=== PATIENT | male | born 1995 | race Caucasian/White ===

== ENCOUNTER 2021-09-21 17:35 | Emergency (ER) | payer OTHER ==
[~2021-09-21] VITALS: Ht 170.7 cm; Wt 69.5 kg
[2021-09-21 17:41] VITALS: BP 130/76
[2021-09-21] MEDS ORDERED: LORazepam 1 MG TAB PO ONE (18:15)
[2021-09-21 19:50] LABS: ANION GAP 16.2 (8-16); CARBON DIOXIDE 26.5 mmol/L (21-32); CREATININE 0.9 mg/dL (0.6-1.3); POTASSIUM 3.7 mmol/L (3.5-5.1)
[2021-09-21 19:51] LABS: ALBUMIN 4.8 g/dL (3.4-5.0); TOTAL BILIRUBIN 0.9 mg/dL (0.0-1.0)
[2021-09-21] MEDS ORDERED: HYDR25CA1 PO (19:55)
[2021-09-21 20:11] VITALS: BP 122/76
== END 2021-09-21 20:11 | disposition home or self-care (01) ==
LOC: MED 17:35
DX: F41.0 Panic disorder [episodic paroxysmal anxiety] (principal); R20.2 Paresthesia of skin; I10 Essential (primary) hypertension; Z79.899 Other long term (current) drug therapy
CPT/HCPCS: 36415; 80053; 93005; 99284

== ENCOUNTER 2022-04-07 22:04 | Emergency (ER) | payer OTHER ==
[~2022-04-07] VITALS: Ht 167.6 cm; Wt 69.4 kg
[~2022-04-07 22:04] MED LIST: HYDR25CA1 PO
[2022-04-07 22:20] VITALS: BP 128/90
--- NOTE | 2022-04-07 22:23 | NUR ---
to lobby a/w bed ambulatory
[2022-04-08 00:30] LABS: BASOPHILS # (AUTO) 0.1 K/uL (0.00-0.22); BASOPHILS % (AUTO) 0.5 % (0.0-2.0); EOSINOPHILS # (AUTO) 0.1 K/uL (0-0.4); EOSINOPHILS % (AUTO) 0.8 % (0.0-4.0); HEMATOCRIT 46.6 % (36-52); HEMOGLOBIN 15.6 g/dL (12.0-18.0); LYMPHOCYTES # (AUTO) 2.8 K/uL (2.0-11.5); LYMPHOCYTES % (AUTO) 24.8 % (20.5-51.1); MEAN CORPUSCULAR HEMOGLOBIN 31 pg (27-31); MEAN CORPUSCULAR HGB CONC 34 g/dL (33-37); MEAN CORPUSCULAR VOLUME 92.5 fL (80-94); MONOCYTES # (AUTO) 0.5 K/uL (0.8-1.0); MONOCYTES % (AUTO) 4.8 % (1.7-9.3); NEUTROPHILS # (AUTO) 7.8 K/uL (1.8-7.7); NEUTROPHILS % (AUTO) 69.1 % (42.2-75.2); PLATELET COUNT (AUTO) 223 K/uL (140-450); RED BLOOD CELL COUNT(AUTO) 5.04 MIL/uL (4.20-6.10); RED CELL DISTRIBUTION WIDTH 13.4 % (11.6-13.7); WHITE BLOOD COUNT (AUTO) 11.3 K/uL (4.8-10.8)
--- NOTE | 2022-04-08 00:39 | NUR ---
PT TO BED 05.
[2022-04-08 00:47] LABS: ALBUMIN 4.8 g/dL (3.4-5.0); ANION GAP 12.9 (8-16); CARBON DIOXIDE 28.5 mmol/L (21-32); POTASSIUM 4.4 mmol/L (3.5-5.1); TOTAL BILIRUBIN 0.3 mg/dL (0.0-1.0)
[2022-04-08] MEDS ORDERED: oxyCODONE/APAP 5/325 MG 1 TAB TAB PO ONE (01:05)
--- NOTE | 2022-04-08 01:05 | NUR ---
Dr. Weller examining patient.
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
--- NOTE | 2022-04-08 01:35 | NUR ---
PT TAKEN TO XRAY
[2022-04-08] MEDS ORDERED: EMLAC TP (02:50)
[2022-04-08] MEDS ORDERED: NAPR-1704 PO (02:50)
[2022-04-08 03:05] VITALS: BP 126/84
--- NOTE | 2022-04-08 03:05 | NUR ---
Patient discharged with v/s stable. Written and verbal after care instructions given and explained. Patient alert, oriented and verbalized understanding of instructions. Ambulatory with steady gait. All questions addressed prior to discharge. ID band removed. Patient advised to follow up with PMD. Rx of NAPROSYN AND LIDOCAINE given. Patient educated on indication of medication including possible reaction and side effects. Opportunity to ask questions provided and answered.
== END 2022-04-08 03:05 | disposition home or self-care (01) ==
LOC: MED 22:04
DX: S22.32XA Fracture of one rib, left side, initial encounter for closed fracture (principal); I10 Essential (primary) hypertension; Z79.899 Other long term (current) drug therapy; W18.30XA Fall on same level, unspecified, initial encounter; Y93.89 Activity, other specified; Y92.89 Other specified places as the place of occurrence of the external cause; Y99.8 Other external cause status
CPT/HCPCS: 36415; 71101; 80053; 83690; 85025; 99284

== ENCOUNTER 2022-08-16 20:56 | Emergency (ER) | payer OTHER ==
[~2022-08-16] VITALS: Ht 172.7 cm; Wt 65.8 kg
[~2022-08-16 20:56] MED LIST changes: +EMLAC TP; +NAPR-1704 PO
[2022-08-16 21:10] VITALS: BP 132/97
--- NOTE | 2022-08-16 21:13 | NUR ---
TO LOBBY A/W BED AMBULATORY
--- NOTE | 2022-08-16 21:15 | NUR ---
HIGH BP TODAY
--- NOTE | 2022-08-16 22:18 | NUR ---
PT TO BED #8
--- NOTE | 2022-08-16 22:23 | NUR ---
Dr. Cee examining patient.
[2022-08-16 23:12] VITALS: BP 132/97
--- NOTE | 2022-08-16 23:14 | NUR ---
Patient discharged with v/s stable. Written and verbal after care instructions given and explained. Patient verbalized understanding. Ambulatory with steady gait. All questions addressed prior to discharge. Advised to follow up with PMD.
== END 2022-08-16 23:14 | disposition home or self-care (01) ==
LOC: MED 20:56
DX: R51.9 Headache, unspecified (principal); I10 Essential (primary) hypertension; Z79.899 Other long term (current) drug therapy
CPT/HCPCS: 99281

== ENCOUNTER 2023-01-17 23:02 | Emergency (ER) | payer OTHER ==
[~2023-01-17] VITALS: Ht 167.6 cm; Wt 65.8 kg
[2023-01-17 23:10] VITALS: BP 138/76; PULSE 76; RESP 17; TEMP 97.8; O2SAT 99
[2023-01-17] MEDS ORDERED: LIDOCAINE MPF 1% 10 MG/ML VIAL INJ ONE (23:45)
[2023-01-18 01:15] VITALS: BP 138/76; PULSE 76; RESP 17; TEMP 97.8; O2SAT 99
== END 2023-01-18 01:15 | disposition home or self-care (01) ==
LOC: MED 23:02
DX: S01.511A Laceration without foreign body of lip, initial encounter (principal); I10 Essential (primary) hypertension; Z79.899 Other long term (current) drug therapy; Z79.1 Long term (current) use of non-steroidal anti-inflammatories (NSAID); W22.8XXA Striking against or struck by other objects, initial encounter; Y92.89 Other specified places as the place of occurrence of the external cause; Y93.89 Activity, other specified; Y99.8 Other external cause status
CPT/HCPCS: 40650; 99284; J2001; 99282